=== PATIENT | male | born 1980 | race American Indian/Alaskan Native ===

== ENCOUNTER 2021-09-10 13:49 | Emergency (ER) | payer BC ==
[2021-09-10 13:55] VITALS: BP 130/57
[2021-09-10] MEDS ORDERED: ACETAMINOPHEN 325 MG TAB PO ONE (13:56)
== END 2021-09-11 22:38 | disposition left against medical advice (07) ==
LOC: ED 13:49
DX: R51.9 Headache, unspecified (principal); Z53.21 Procedure and treatment not carried out due to patient leaving prior to being seen by health care provider